=== PATIENT | female | born 2000 | race Caucasian/White ===

== ENCOUNTER 2022-09-24 23:00 | Observation (INO) | payer OTHER ==
[~2022-09-24] VITALS: Ht 149.9 cm; Wt 77.1 kg
== END 2022-09-25 02:11 | disposition home or self-care (01) ==
LOC: SPU 23:00 → UNDOADMOB 23:00 → SPU 09-25 00:01
PROVIDERS: ADMIT Obstetrics & Gynecology; ATTEND Obstetrics & Gynecology
DX: O62.9 Abnormality of forces of labor, unspecified (principal); Z3A.37 37 weeks gestation of pregnancy
CPT/HCPCS: G0379; G0378

== ENCOUNTER 2022-09-26 10:13 | Observation (INO) | payer OTHER ==
[~2022-09-26] VITALS: Ht 149.9 cm; Wt 79.4 kg
== END 2022-09-26 12:21 | disposition home or self-care (01) ==
LOC: SPU 10:13
PROVIDERS: ADMIT Obstetrics & Gynecology; ATTEND Obstetrics & Gynecology
DX: O26.853 Spotting complicating pregnancy, third trimester (principal); Z3A.37 37 weeks gestation of pregnancy
CPT/HCPCS: G0378; G0379

== ENCOUNTER 2022-09-27 01:52 | Observation (INO) | payer OTHER ==
[~2022-09-27] VITALS: Ht 149.9 cm; Wt 80.7 kg
[2022-09-27] MEDS ORDERED: TERBUTALINE SULFATE 1 MG/ML VIAL SUBCUT ONE (03:15)
== END 2022-09-27 04:26 | disposition home or self-care (01) ==
LOC: SPU 01:52
PROVIDERS: ADMIT Obstetrics & Gynecology; ATTEND Obstetrics & Gynecology
DX: O62.9 Abnormality of forces of labor, unspecified (principal); Z3A.37 37 weeks gestation of pregnancy
CPT/HCPCS: 96372; J3105; G0378